=== PATIENT | female | born 1990 | race African-American/Black ===

== ENCOUNTER 2017-06-25 19:09 | Emergency (ER) | payer SELFPAY ==
--- NOTE | 2017-06-25 19:10 | NUR ---
"STATED "I FEEL BETTER NOW AND I DONT WANNA SEE A DOCTOR; I WANNA LEAVE"
== END 2017-06-25 19:18 | disposition left against medical advice (07) ==
LOC: EDBD 19:10 → ER 19:10
DX: Z53.21 Procedure and treatment not carried out due to patient leaving prior to being seen by health care provider (principal)

== ENCOUNTER 2017-07-08 22:33 | Emergency (ER) | payer SELFPAY ==
--- NOTE | 2017-07-08 22:45 | NUR ---
CALLED PT IN [place], NO RESPONSE
--- NOTE | 2017-07-08 23:16 | NUR ---
CALLED PT IN [place], NO RESPONSE
--- NOTE | 2017-07-08 23:49 | NUR ---
CALLED PT IN [place], NO RESPONSE
--- NOTE | 2017-07-09 00:16 | NUR ---
CALLED PT IN [place], NO RESPONSE
--- NOTE | 2017-07-09 00:43 | NUR ---
CALLED PT IN [place], NO RESPONSE
== END 2017-07-09 00:45 | disposition left against medical advice (07) ==
LOC: ER 22:34
DX: Z53.21 Procedure and treatment not carried out due to patient leaving prior to being seen by health care provider (principal)